=== PATIENT | female | born 1950 | race Caucasian/White ===

== ENCOUNTER 2017-08-15 03:01 | Emergency (ER) | payer MEDICARE, MEDICAID ==
--- NOTE | 2017-08-15 03:19 | RADIOLOGY REPORT (SQ) ---
EXAM DESCRIPTION: CT HEAD WITHOUT CLINICAL HISTORY: stroke sx COMPARISON: None available TECHNIQUE: Axial CT of the head obtained from the skull apex to the skull base without contrast. FINDINGS: No acute intracranial hemorrhage identified. No mass, mass effect, shift of the midline, abnormal extra-axial fluid collection or CT evidence of acute ischemic change identified. The ventricular system is unremarkable. No acute abnormalities of the supratentorial white matter, basal ganglia, cerebellum, or brainstem. The visualized paranasal sinuses and the mastoids are clear. No skull fracture identified. Visualized orbits and globes are unremarkable. Atherosclerotic calcification of the intracranial internal carotid arteries. DLP: 925.66 mGy-cm IMPRESSION: 1. No acute intracranial abnormality identified. This exam was performed according to our departmental dose-optimization program, which includes automated exposure control, adjustment of the mA and/or kV according to patient size and/or use of iterative reconstruction technique.
--- NOTE | 2017-08-15 03:24 | ER Document Report ---
ED General <KLARISSA CHAVARRIA E - Last Filed: 08/15/17 07:50> - General Mode of Arrival: Ambulatory Information source: Relative, Emergency Med Personnel Cannot obtain history due to: Altered mental status TRAVEL OUTSIDE OF THE [place] IN LAST 30 DAYS: No - HPI Onset: Just prior to arrival Onset/Duration: Sudden Similar symptoms previously: No <YONY VILLEGAS E - Last Filed: 08/15/17 08:41> - General Chief Complaint: S/S of Possible Stroke Stated Complaint: POSSIBLE STROKE Time Seen by Provider: 08/15/17 03:03 Notes: 57-year-old female with a history of diabetes, hypertension, congestive heart failure presents via EMS from home after the daughter found her mother unresponsive in bed. Daughter is at the bedside and states the last known well was approximately 15 hours prior to arrival. She states that 1 hour prior to arrival her mother called out to her and asked her to open the door and then she left for a friend's house for approximately 1 hour and when she returned she noticed that her mother was not acting her normal self. She reports a facial droop. She denies any recent illnesses she does state that she believes her mother has been noncompliant with her medications. She is unable to follow commands. She is nonverbal. (YONY VILLEGAS) - Related Data Allergies/Adverse Reactions: No Known Allergies Allergy (Unverified 01/20/11 12:46) Past Medical History - General Information source: Patient Cannot obtain history due to: Uncooperative, Altered mental status - Social History Smoking Status: Current Every Day Smoker Drug Abuse: None Lives with: Family Family History: Reviewed & Not Pertinent - Past Medical History Cardiac Medical History: Reports: Hx Congestive Heart Failure, Hx Hypercholesterolemia, Hx Hypertension Endocrine Medical History: Reports: Hx Diabetes Mellitus Type 2 Psychiatric Medical History: Reports: Hx Depression Past Surgical History: Reports: Hx Appendectomy, Hx Cholecystectomy - Immunizations Immunizations up to date: Yes Hx Diphtheria, Pertussis, Tetanus Vaccination: Yes <YONY VILLEGAS - Last Filed: 08/15/17 08:41> Review of Systems - Review of Systems -: Yes ROS unobtainable due to patient's medical condition <YONY VILLEGAS - Last Filed: 08/15/17 08:41> Physical Exam - Vital signs Interpretation: Normal, Hypertensive, Hypoxic - General General appearance: Other - Patient is alert, awake but nonverbal and not following commands. - HEENT Head: Normocephalic, Atraumatic Eyes: Normal Extraocular movements intact: Yes Pupils: PERRL Ears: Normal Tympanic membrane: Normal Mucous membranes: Dry Pharynx: Normal Neck: Normal. No: Carotid bruit - Respiratory Respiratory status: No respiratory distress. No: Respiratory distress, Agonal respirations Chest status: Nontender Breath sounds: Normal Chest palpation: Normal - Cardiovascular Rhythm: Regular Heart sounds: Normal auscultation Murmur: No Pulses: Normal: Radial, Dorsalis pedis - Abdominal Inspection: Normal, Obese Distension: No distension Bowel sounds: Normal Tenderness: Nontender Organomegaly: No organomegaly - Back Back: Normal, Nontender - Extremities General upper extremity: Normal inspection, Nontender, Normal color, Normal ROM , Normal temperature General lower extremity: Normal inspection, Nontender, Normal color, Normal ROM , Normal temperature, Normal weight bearing. No: Alan's sign - Neurological Neuro grossly intact: No Cognition: Confused Orientation: Disoriented to person, Disoriented to place, Disoriented to time [place] Coma Scale Eye Opening: Spontaneous [place] Coma Scale Verbal: None [place] Coma Scale Motor: Withdraws to Pain [place] Coma Scale Total: 9 Speech: Other - Nonverbal Cranial nerves: Other - Unable to assess Cerebellar coordination: Other - Unable to assess Motor strength normal: LUE - Patient moving left upper extremity. No movement of the right upper extremity. Additional motor exam normals: Weakness Sensory: Normal - Psychological Associated symptoms: Normal mood, Confused - Skin Skin Temperature: Warm Skin Moisture: Dry Skin Color: Normal Skin Turgor: Edematous Skin irregularity: Erythema Location of irregularity: Extremities <YONY VILLEGAS E - Last Filed: 08/15/17 08:41> - Vital signs Vitals: Pulse Ox 93 08/15/17 03:02 Course - Laboratory Result Diagrams: 08/15/17 03:19 08/15/17 03:19 <KLARISSA CHAVARRIA E - Last Filed: 08/15/17 07:50> - Laboratory Result Diagrams: 08/15/17 03:19 08/15/17 03:19 - EKG Interpretation by Ks EKG shows normal: Sinus rhythm Rate: Normal Rhythm: NSR <YONY VILLEGAS E - Last Filed: 03/21/18 08:41> - Re-evaluation Re-evalutation: 08/15/17 07:51 Dr. Villegas arranged transfer to [facility] for occluded internal carotid artery on CTA. Transport in ED. Pt reassessed and stable for transport. (KLARISSA CHAVARRIA) 08/15/17 03:37 Bedside ultrasound was performed which showed no pericardial effusion. There are multiple B-lines throughout both right and left lung which could be indicative of fluid overload. Right ventricle does appear dilated. 08/15/17 03:38 NIH scale was performed and patient scored 27. Patient not following commands. 08/15/17 08:15 Radiologist called with read of internal carotid artery occlusion and large left mca stroke. Called [facility] no beds availble. Called [facility] and spoke to Dr Isidro at 6:10am he has accepted the patient. Nurse informed daughter who left ED within minutes of her mother's arrival. 67 F with history of DM, HTN, CHF, tobacco abuse presented from home after daughter found her mother altered and not responsive. Daughter stated that she last saw her mother well, conversive, and at baseline around noon. 15 hours prior to arrival. Upon arrival patient is maintaining airway and is awake, alert but non-verbal and sent immediately to CT. NIH 26-27. Patient does not follow any commands. She has little to no movement of right side but moves left freely.Daughter is at bedside and knows little information about mother's co- morbidities or medications. she states that approximately one hour prior to arrival the patient called out to her daughter to open the door. The daughter did and then left for a friends house. She did not physically see the patient since noon. She states when she arrived home she found her mother altered, and not speaking and called 911. The time of onset is unclear. Exam significant for aphasia and right sided flacid paralysis. Initially CT showed no acute process. CTA chest, head and neck was then performed and significant for occlusion of the cervical and intracranial left internal carotid artery this is likely producing a large left MCA distribution infarction. [facility] accepted by Dr Isidro. rapid transport arranger. Patient was given aspirin, narcan, lasix (pulmonary edema). Patient signed out to Dr Chavarria with transfer pending. Chest X-Ray 08/15/17 03:02 IMPRESSION: 1. Cardiomegaly with interstitial pulmonary edema. Head CT 08/15/17 03:02 IMPRESSION: 1. No acute intracranial abnormality identified. This exam was performed according to our departmental dose-optimization program, which includes automated exposure control, adjustment of the mA and/or kV according to patient size and/or use of iterative reconstruction technique. Chest/Abdomen CTA 08/15/17 03:37 IMPRESSION: 1. 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 This extends intracranially. There is minimal reconstitution of flow in the left MCA via collaterals from the right internal carotid circulation. There is reconstitution of the left ROBIN via the anterior communicating artery. Significant pruning of the left MCA vascular territory. 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 Correlation with MRI recommended. 2. No evidence of right internal carotid arterial stenosis. Mild atherosclerotic plaque. 3. No pulmonary embolus identified. 4. Cardiomegaly with likely interstitial pulmonary edema. Coronary artery atherosclerosis. Urgent finding reported to Dr. Villegas at 08/15/2017 0458 hours CDT This exam was performed according to our departmental dose-optimization program, which includes automated exposure control, adjustment of the mA and/or kV according to patient size and/or use of iterative reconstruction technique. Head CTA 08/15/17 04:15 IMPRESSION: 1. 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 This extends intracranially. There is minimal reconstitution of flow in the left MCA via collaterals from the right internal carotid circulation. There is reconstitution of the left ROBIN via the anterior communicating artery. Significant pruning of the left MCA vascular territory. 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 Correlation with MRI recommended. 2. No evidence of right internal carotid arterial stenosis. Mild atherosclerotic plaque. 3. No pulmonary embolus identified. 4. Cardiomegaly with likely interstitial pulmonary edema. Coronary artery atherosclerosis. Urgent finding reported to Dr. Villegas at 08/15/2017 0458 hours CDT This exam was performed according to our departmental dose-optimization program, which includes automated exposure control, adjustment of the mA and/or kV according to patient size and/or use of iterative reconstruction technique. Neck CTA 08/15/17 04:32 IMPRESSION: 1. 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 This extends intracranially. There is minimal reconstitution of flow in the left MCA via collaterals from the right internal carotid circulation. There is reconstitution of the left ROBIN via the anterior communicating artery. Significant pruning of the left MCA vascular territory. 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 Correlation with MRI recommended. 2. No evidence of right internal carotid arterial stenosis. Mild atherosclerotic plaque. 3. No pulmonary embolus identified. 4. Cardiomegaly with likely interstitial pulmonary edema. Coronary artery atherosclerosis. Urgent finding reported to Dr. Villegas at 08/15/2017 0458 hours CDT This exam was performed according to our departmental dose-optimization program, which includes automated exposure control, adjustment of the mA and/or kV according to patient size and/or use of iterative reconstruction technique. (YONY VILLEGAS) - Vital Signs Vital signs: Temp Pulse Resp BP Pulse Ox 97.7 F 82 15 139/79 H 100 08/15/17 08:05 08/15/17 08:05 08/15/17 08:05 08/15/17 08:05 08/15/17 08:05 - Laboratory Laboratory results interpreted by me: 08/15/17 08/15/17 08/15/17 03:19 03:19 03:19 RDW 15.6 H Plt Count 138 L D-Dimer Ammonia < 8.7 L Creatine Kinase 25 L NT-Pro-B Natriuret Pep Urine Ketones 08/15/17 08/15/17 08/15/17 03:19 03:19 04:54 RDW Plt Count D-Dimer 0.82 H Ammonia Creatine Kinase NT-Pro-B Natriuret Pep 1170 H Urine Ketones TRACE H Critical Care Note - Critical Care Note Total time excluding time spent on procedures (mins): 40 - minutes of critical care time spent in direct contact evaluating and reevaluating the patient, treating symptoms, reviewing labs and studies and speaking with family and consultants excluding any procedures <YONY VILLEGAS E - Last Filed: 08/15/17 08:41> Discharge <KLARISSA CHAVARRIA E - Last Filed: 08/15/17 07:50> <YONY VILLEGAS - Last Filed: 08/15/17 08:41> - Discharge Clinical Impression: CVA (cerebral vascular accident) Qualifiers: CVA mechanism: occlusion Precerebral and cerebral artery: carotid artery Laterality of affected vessel: left Qualified Code(s): I63.232 - Cerebral infarction due to unspecified occlusion or stenosis of left carotid arteries Internal carotid artery occlusion Qualifiers: Laterality: left Qualified Code(s): I65.22 - Occlusion and stenosis of left carotid artery Condition: Serious Disposition: [facility] Referrals: CORY FOSTER MD [Primary Care Provider] - Follow up as needed ED NIH Stroke Scale - NIH Stroke Scale *: 1. NIH scale should be completed with appropriate accompanying assessment tools. *: 2. The NIH should reflect what the patient is capable of doing and should not be coached by the clinician. 1a. Level of Consciousness: 0=Alert;keenly responsive -: 1=Drowsy -: 2=Obtunded -: 3=Coma/unresponsive or reflex to noxious stimuli. 1a. Responses: 1 1b. Orientation Questions: a. What month is it? -: b. How old are you? -: 0=Answers both questions correctly. -: 1=Answers one question correctly or patient is intubated or has orotracheal trauma. -: 2=Answers neither question correctly. 1b. Responses: 2 1c. Response to commands: a. Open and close eyes? -: b. Accounts Payable Processor and release hand? -: Credit is given despite weakness. Demonstration of task is permitted. Substitute command if hands cannot be used. -: 0=Performs both tasks correctly -: 1=Performs one task correctly -: 2=Performs neither task correctly 1c. Responses: 2 2. Gaze: Establish eye contact and instruct patient to "Follow my finger" -: 0=Normal -: 1=Partial gaze palsy. Gaze is abnormal in one or both eyes, but where forced deviation or total gaze paresis is not present. -: 2=Forced deviation or total gaze paresis. 2. Responses: 0 3. Visual Gray: Sees fingers in all four quadrants. -: 0=No visual loss. -: 1=Partial hemianopsia. -: 2=Complete hemianopsia. -: 3=Bilateral hemianopsia (including Cortical blindness) 3. Responses: 3 4. Facial Movement: Instruct patient to: -: a. Show me your teeth -: b. Raise your eyebrows -: c. Close your eyes -: d. Smile -: 0=Normal symmetrical movement -: 1=Minor paralysis (flattened nasolabial fold, asymmetry on smiling). -: 2=Partial paralysis (total or near total paralysis of lower face). -: 3=Complete paralysis of upper and lower face 4. Responses: 1 5. Motor functions (left arm): Alternate sides and extend each arm with palms down (90 degrees if sitting or 45 degrees for supine). -: 0=No drift;limb holds for full 10 seconds. -: 1=Drift; limb holds but drifts down before full 10 seconds, but does not hit bed. -: 2=Some effort against gravity; limb cannot get to or maintain position. -: 3=No effort against gravity; limb falls. -: 4=No movement. -: UN=Amputation, joint fusion, explain in comments. 5. Responses (left arm): 2 5. Motor Functions (right arm): Alternate sides and extend each arm with palms down (90 degrees if sitting or 45 degrees for supine). -: 0=No drift;limb holds for full 10 seconds. -: 1=Drift; limb holds but drifts down before full 10 seconds, but does not hit bed. -: 2=Some effort against gravity; limb cannot get to or maintain position. -: 3=No effort against gravity; limb falls. -: 4=No movement. -: UN=Amputation, joint fusion, explain in comments. 5. Responses (right arm): 4 6. Motor Functions (left leg): With patient lying supine, alternate sides and extend each leg (30 degrees always while supine). -: 0=No drift, leg holds position for full 5 seconds -: 1=Drift; leg falls before full 5 seconds but does not hit bed. -: 2=Some effort against gravity, leg falls to bed but some effort against gravity. -: 3=No effort against gravity, leg falls to bed immediately. -: 4=No movement. -: UN=Amputation, joint fusion; explain in comments. 6. Responses (left leg): 3 6. Motor Functions (right leg): With patient lying supine, alternate sides and extend each leg (30 degrees always while supine). -: 0=No drift, leg holds position for full 5 seconds -: 1=Drift; leg falls before full 5 seconds but does not hit bed. -: 2=Some effort against gravity, leg falls to bed but some effort against gravity. -: 3=No effort against gravity, leg falls to bed immediately. -: 4=No movement. -: UN=Amputation, joint fusion; explain in comments. 6. Responses (right leg): 3 7. Limb Ataxia: With eyes open instruct patient to: -: a. "Touch your finger to your nose". -: b. "Touch your heel to your gallegos" -: 0=Absent -: 1=Present in one limb. -: 2=Present in two limbs. -: UN=Amputation or joint fusion; explain in comments. 7. Responses: 2 8. Sensory: Test sensation using pinprick or noxious stimuli. Test as many body parts as possible. -: 0=Normal;no sensory loss -: 1=Mile to moderate sensory loss (patient feels pin prick but is less sharp on affected side). -: 2=Severe or total sensory loss. 8. Responses: 2 9. Best Language: Instruct patient to: -: a. "Describe what you see in this picture." -: b. "Name the items in this picture." -: c. "Read these sentences." -: 0=No aphasia, normal -: 1=Mild to moderate aphasia. -: 2=Severe aphasia -: 3=Mute, global aphasia, no usable speech or auditory comprehension. 9. Responses: 3 10. Articulation, Dysarthia: Instruct patient to: -: "Read these words" or "Repeat these words" -: 0=Normal -: 1=Mild to moderate; patient may slur some words but can be understood without difficulty. -: 2=Severe; patients speech so slurred as to be unintelligible in the absence of dysphasia. -: UN=Intubated or other physical barrier, explain in comments. 10. Responses: 2 11. Extinction or inattention: 0=No abnormality -: 1= Visual, tactile, auditory, spatial, or personal inattention or extinction to bilateral simulation in one or the sensory modalities. -: 2=Profound fabi-inattention or fabi-inattention to more than one modality; does not recognize own hand. 11. Responses: 2 Total Score: 32 <YONY VILLEGAS - Last Filed: 08/15/17 08:41>
--- NOTE | 2017-08-15 03:26 | RADIOLOGY REPORT (SQ) ---
EXAM DESCRIPTION: CHEST SINGLE VIEW CLINICAL HISTORY: stroke sx COMPARISON: 06/05/2015 FINDINGS: Single frontal view of the chest. Atherosclerotic calcification tortuosity of thoracic aorta. Cardiomegaly. Pulmonary vascular congestion with interstitial opacities. Possible small bilateral pleural effusions. No pneumothorax. No acute osseous abnormality. Upper abdominal soft tissues are unremarkable. IMPRESSION: 1. Cardiomegaly with interstitial pulmonary edema.
[2017-08-15 03:33] LABS: VENOUS BLOOD BASE EXCESS 1.3 mmol/L; VENOUS BLOOD HCO3 28.9 mmol/L (20-32); VENOUS BLOOD PCO2 58.2 mmHg (35-63); VENOUS BLOOD PH 7.31 (7.30-7.42)
[2017-08-15 03:35] LABS: ABSOLUTE BASOPHILS # (AUTO) 0.1 10^3/uL (0.0-0.2); ABSOLUTE EOSINOPHILS # (AUTO) 0.1 10^3/uL (0.0-0.6); ABSOLUTE LYMPHOCYTES (AUTO) 1.7 10^3/uL (0.5-4.7); ABSOLUTE MONOCYTES (AUTO) 0.5 10^3/uL (0.1-1.4); ABSOLUTE NEUT (AUTO) 4.7 10^3/uL (1.7-8.2); BASOPHILS % (AUTO) 0.7 % (0-2); HEMATOCRIT 43.1 % (36.0-47.0); HEMOGLOBIN 14.1 g/dL (12.0-15.5); LYMPHOCYTES % (AUTO) 23.6 % (13-45); MEAN CORPUSCULAR HEMOGLOBIN 29.3 pg (27.0-33.4); MEAN CORPUSCULAR HGB CONC 32.8 g/dL (32.0-36.0); MEAN CORPUSCULAR VOLUME 89 fl (80-97); MONOCYTES % (AUTO) 6.8 % (3-13); PLATELET COUNT 138 10^3/uL (150-450); RED BLOOD COUNT 4.82 10^6/uL (3.72-5.28); RED CELL DISTRIBUTION WIDTH 15.6 % (11.5-14.0); SEGMENTED NEUTROPHILS % (AUTO) 66.9 % (42-78); TOTAL CELLS COUNTED % (AUTO) 100 %
[2017-08-15 03:47] LABS: ALANINE AMINOTRANSFERASE 32 U/L (9-52); ALBUMIN 3.5 g/dL (3.5-5.0); ALKALINE PHOSPHATASE 90 U/L (38-126); ANION GAP 9 (5-19); ASPARTATE AMINO TRANSFERASE 27 U/L (14-36); BILIRUBIN,DIRECT 0.4 mg/dL (0.0-0.4); BILIRUBIN,TOTAL 0.7 mg/dL (0.2-1.3); BLOOD UREA NITROGEN 13 mg/dL (7-20); CALCIUM 9.3 mg/dL (8.4-10.2); CARBON DIOXIDE 30 mmol/L (22-30); CHLORIDE 104 mmol/L (98-107); CREATINE KINASE 25 U/L (30-135); GLUCOSE 102 mg/dL (75-110); POTASSIUM 4.6 mmol/L (3.6-5.0); SODIUM 143.3 mmol/L (137-145); TOTAL PROTEIN 6.5 g/dL (6.3-8.2)
[2017-08-15 03:51] LABS: PROTHROMBIN TIME 13.8 SEC (11.4-15.4)
[2017-08-15 03:52] LABS: INTERNATIONAL RATION (INR) 0.99; PARTIAL THROMBOPLASTIN TIME 33.2 SEC (23.5-35.8)
[2017-08-15 03:58] LABS: CREATINE KINASE MB 0.65 ng/mL (<4.55); TROPONIN I 0.018 ng/mL
[2017-08-15] MEDS ORDERED: FUROSEMIDE INJ/PF 40 MG/4 ML SDV IV ONE (04:30)
[2017-08-15] MEDS ORDERED: NALOXONE HCL INJ/PF 0.4 MG/1 ML SDV IV ONE (04:32)
[2017-08-15 06:00] LABS: APPEARANCE,URINE CLEAR; BILIRUBIN,URINE NEGATIVE (NEGATIVE); COLOR,URINE YELLOW; GLUCOSE, URINE NEGATIVE (NEGATIVE); KETONES,URINE TRACE mg/dL (NEGATIVE); LEUKOCYTE ESTERASE,URINE NEGATIVE (NEGATIVE); NITRITE,URINE NEGATIVE (NEGATIVE); PROTEIN,URINE NEGATIVE (NEGATIVE); URINE SPECIFIC GRAVITY 1.043; UROBILINOGEN,URINE NEGATIVE mg/dL (<2.0)
[2017-08-15] MEDS ORDERED: ASPIRIN 300 MG SUPP, RECTAL PR ONE (06:00)
--- NOTE | 2017-08-15 06:12 | RADIOLOGY REPORT (SQ) ---
EXAM DESCRIPTION: 1. CTA of the head with contrast. 2. CTA of the neck with contrast. 3. CTA of the chest with contrast. CLINICAL HISTORY: Hypoxia and altered mental status. COMPARISON: None available TECHNIQUE: Axial CTA images of the head, neck, and chest obtained following the uncomplicated intravenous administration of 100 mL [id number]. 3-D/MIP reformatted images available. 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 The right intracranial internal carotid artery has normal course and caliber with mild atherosclerotic plaque. The right intracranial internal carotid artery bifurcates into patent A1 and M1 segments of the anterior middle cerebral arteries, respectively. The anterior communicating artery is patent and supplies the left anterior cerebral artery. There is minimal reconstitution of flow in the left middle cerebral artery either via the posterior communicating artery or the A1 segment of the left anterior cerebral artery. There is significant pruning of the vasculature in the left MCA distribution. No definite aneurysm identified however suboptimal evaluation for this due to contrast bolus timing. In the posterior circulation there is a dominant left vertebral artery supplying the basilar artery. The right vertebral artery likely terminates as the right PICA. The basilar artery bifurcates into patent posterior cerebral arteries. No evidence of occlusion of the posterior cerebral arteries. No definite aneurysm or stenosis however evaluation is suboptimal due to technique. No definite abnormalities of the orbits or globes. Paranasal sinuses and mastoid air cells are well aerated. No skull fracture identified. CTA NECK: Right carotid: The origin of the right carotid artery is patent. The right common carotid artery is widely patent throughout its course. The right common carotid artery bifurcates into patent internal and external carotid arteries. 0% stenosis of the right internal carotid artery NASCET criteria. Mild calcified atherosclerotic plaque. No definite evidence of dissection or occlusion however evaluation is suboptimal due to contrast bolus timing Left carotid: The origin of the left carotid artery is patent. The left common carotid artery is widely patent throughout its course. Mild atherosclerotic plaque. There is occlusion of the left internal carotid artery approximately 1 cm distal to the bifurcation of the common carotid artery. 100% stenosis of the left internal carotid artery NASCET criteria. The entire segment of the cervical left internal carotid artery is occluded. No definite evidence of dissection or occlusion however evaluation is suboptimal due to contrast bolus timing. Vertebral arteries: The dominant left vertebral artery with atherosclerotic plaque. The right vertebral artery is diminutive in caliber throughout its length. No evidence of occlusion. Suboptimal evaluation for dissection due to contrast bolus timing. No definite abnormalities of visualized neck soft tissues or superior mediastinum. No cervical lymphadenopathy identified. Mild degenerative change of the cervical spine. CTA chest: Chest: Mediastinal windows demonstrate an excellent contrast bolus. No pulmonary embolus identified. Enlargement of the main pulmonary artery. This could be seen with pulmonary arterial hypertension. Visualized thyroid gland is unremarkable. Atherosclerotic calcification of the aortic arch. No evidence of dissection. The vessels have normal anatomic configuration. Cardiomegaly with coronary artery atherosclerosis. No significant pericardial effusion. No abnormalities of the esophagus. Scattered mediastinal lymph nodes are not enlarged by CT criteria. Lung windows demonstrate bilateral groundglass opacities and interlobular septal thickening. Small right pleural effusion. Right lateral dependent atelectasis. No pneumothorax. No abnormalities of the visualized trachea or airways. Limited images of the upper abdomen demonstrate no abnormalities of the visualized liver, spleen, pancreas, or adrenal glands. Degenerative change of the spine. DLP: 1300.27 mGy-cm IMPRESSION: 1. 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 This extends intracranially. There is minimal reconstitution of flow in the left MCA via collaterals from the right internal carotid circulation. There is reconstitution of the left ROBIN via the anterior communicating artery. Significant pruning of the left MCA vascular territory. 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 Correlation with MRI recommended. 2. No evidence of right internal carotid arterial stenosis. Mild atherosclerotic plaque. 3. No pulmonary embolus identified. 4. Cardiomegaly with likely interstitial pulmonary edema. Coronary artery atherosclerosis. Urgent finding reported to Dr. Villegas at 08/15/2017 0458 hours CDT This exam was performed according to our departmental dose-optimization program, which includes automated exposure control, adjustment of the mA and/or kV according to patient size and/or use of iterative reconstruction technique.
[2017-08-15 06:14] LABS: URINE AMPHETAMINES SCREEN NEGATIVE; URINE BARBITURATES SCREEN NEGATIVE; URINE BENZODIAZEPINES SCREEN NEGATIVE; URINE COCAINE SCREEN NEGATIVE; URINE MARIJUANA (THC) SCREEN NEGATIVE; URINE METHADONE SCREEN NEGATIVE; URINE PHENCYCLIDINE SCREEN NEGATIVE
[2017-08-15 08:05] VITALS: BP 139/79
--- NOTE | 2017-08-15 09:01 | EKG REPORT ---
SEVERITY:- ABNORMAL ECG - SINUS RHYTHM ABNORMAL T, CONSIDER ISCHEMIA, LATERAL LEADS : Confirmed by: Emmett Benites 15-Aug-2017 09:00:37
== END 2017-08-15 08:00 | disposition short-term general hospital (02) ==
LOC: ER 03:01
DX: I63.232 Cerebral infarction due to unspecified occlusion or stenosis of left carotid arteries (principal); R47.01 Aphasia; R29.810 Facial weakness; I10 Essential (primary) hypertension; F17.200 Nicotine dependence, unspecified, uncomplicated; E11.9 Type 2 diabetes mellitus without complications; R09.02 Hypoxemia; R41.0 Disorientation, unspecified; I51.7 Cardiomegaly
CPT/HCPCS: 93005; 99291; 51702; 96374; 96375; 36415; 82553; 82962; 82140; 82550; 85025; 85610; 85730; 80053; 81001; 84484; 80307; 85379; 82803; 83605; 83880; 71045; 70450; 70496; 70498; 71275; 93010; A9270; J1940; J2310; J3490